=== PATIENT | female | born 1950 | race Caucasian/White ===

== ENCOUNTER 2017-01-16 15:53 | Emergency (ER) | payer OTHER ==
[2017-01-16 15:53] VITALS: BMI 30.9
[2017-01-16 17:03] LABS: BASO % 0.4 % (0.0-2.0); EOS # 0.2 K/uL (0.0-0.7); EOS % 3.6 % (0.0-4.0); HEMATOCRIT 36.2 % (34.0-47.0); LYMPH # 1.9 K/uL (1.0-4.3); LYMPH % 30.2 % (20.0-40.0); MEAN CELL VOLUME 87.2 fL (81.0-99.0); MEAN CORPUSCULAR HEMOGLOBIN 29.1 pg (27.0-31.0); MEAN CORPUSCULAR HGB CONC 33.4 g/dL (33.0-37.0); MEAN PLATELET VOLUME 10.8 fL (7.2-11.7); MONO # 0.4 K/uL (0.0-0.8); MONO % 6.8 % (0.0-10.0); RED CELL DISTRIBUTION WIDTH 14.2 % (11.5-14.5); WHITE BLOOD COUNT 6.3 K/uL (4.8-10.8)
--- NOTE | 2017-01-16 17:05 | C.PDOC ---
History Of Present Illness 67-year-old female, whose PMHx includes Hypertension (on 160mg Valsartan QD), presents to the emergency department with complaints of high blood pressure. Patient states that a nurse came to her home to do a physical for insurance, and patients BP was found to be 240/120. Patient was told to take an additional dose her blood pressure medication, which she did, without any change in pressure, resulting in her coming to the ED for evaluation. Patient currently asymptomatic. Denies dizziness, headaches, nausea/vomiting, chest pain, back pain, or any other associated symptoms. No other complaints at this time. Time Seen by Provider: 01/16/17 16:44 Chief Complaint (Nursing): High Blood Pressure History Per: Patient History/Exam Limitations: no limitations Past Medical History Reviewed: Historical Data, Nursing Documentation, Vital Signs Vital Signs: Last Vital Signs Temp 98.0 F 01/16/17 18:04 Pulse 71 01/16/17 18:04 Resp 17 01/16/17 18:04 BP 163/87 H 01/16/17 19:00 Pulse Ox 96 01/16/17 18:04 - Medical History PMH: Anxiety, Asthma, HTN, Hypercholesterolemia Family History: States: No Known Family Hx - Social History Hx Tobacco Use: No Hx Alcohol Use: No Hx Substance Use: No - Immunization History Hx Tetanus Toxoid Vaccination: No Hx Influenza Vaccination: No Hx Pneumococcal Vaccination: No Review Of Systems Except As Marked, All Systems Reviewed And Found Negative. Constitutional: Negative for: Fever, Chills Cardiovascular: Negative for: Chest Pain, Palpitations Respiratory: Negative for: Shortness of Breath Gastrointestinal: Negative for: Nausea, Vomiting, Abdominal Pain Musculoskeletal: Negative for: Back Pain Neurological: Negative for: Weakness, Numbness, Headache, Dizziness Physical Exam - Physical Exam Appears: Non-toxic, No Acute Distress Skin: Warm, Dry, No Rash Head: Atraumatic, Normacephalic Eye(s): bilateral: Normal Inspection, PERRL, EOMI Nose: Normal Oral Mucosa: Moist Lips: Normal Appearing Neck: Normal ROM Cardiovascular: Rhythm Regular, No Murmur Respiratory: Normal Breath Sounds, No Accessory Muscle Use Gastrointestinal/Abdominal: Soft, No Tenderness Extremity: Normal ROM Neurological/Psych: Oriented x3 ED Course And Treatment - Laboratory Results Result Diagrams: 01/16/17 16:53 01/16/17 17:00 Lab Interpretation: No Acute Changes O2 Sat by Pulse Oximetry: 99 Pulse Ox Interpretation: Normal Progress Note: Patient given 2 doses of clonidine 0.1mg po and BP decreased to 167/86. she remains asymptomatic. Reevaluation Time: 19:20 Reassessment Condition: Improved Disposition Counseled Patient/Family Regarding: Studies Performed, Diagnosis, Need For Followup, Rx Given - Disposition Referrals: Tim Robles MD, PhD [Family Provider] - Karla Silva MD [Staff Provider] - Disposition: HOME/ ROUTINE Disposition Time: 19:21 Condition: IMPROVED Additional Instructions: follow up with your ventilating engineer in the morning for additional monitoring of your blood pressure. Prescriptions: hydroCHLOROthiazide [Hydrodiuril] 25 mg PO DAILY #30 tab Instructions: Hypertension (ED) Print Language: MICRONESIAN - Clinical Impression Clinical Impression: Uncontrolled hypertension - Scribe Statement The provider has reviewed the documentation as recorded by the Jay Schafer All medical record entries made by the Manuelitoibariadna were at my direction and personally dictated by me. I have reviewed the chart and agree that the record accurately reflects my personal performance of the history, physical exam, medical decision making, and the department course for this patient. I have also personally directed, reviewed, and agree with the discharge instructions and disposition.
[2017-01-16 17:13] LABS: URINE BILIRUBIN NEGATIVE (NEGATIVE); URINE BLOOD NEGATIVE (NEGATIVE); URINE COLOR Colorless (YELLOW); URINE GLUCOSE (UA) NORMAL (Normal); URINE KETONE NEGATIVE (NEGATIVE); URINE LEUKOCYTE ESTERASE NEG Leu/uL (Negative); URINE PROTEIN NEGATIVE (NEGATIVE); URINE UROBILINOGEN NORMAL mg/dL (0.2-1.0); WBC URINE 1 /hpf (0-5)
[2017-01-16 17:19] LABS: CHLORIDE 104 mmol/L (98-107)
[2017-01-16 17:20] LABS: POTASSIUM 3.5 mmol/L (3.6-5.2); SODIUM 140 mmol/L (132-148)
[2017-01-16 17:22] LABS: ALB/GLOB RATIO 1.1 (1.0-2.1); AST/SGOT 19 U/L (14-36); BILIRUBIN,TOTAL 0.7 mg/dL (0.2-1.3); BLOOD UREA NITROGEN 13 mg/dL (7-17); CARBON DIOXIDE 25 mmol/L (22-30); GFR AFRICAN-AMERICAN > 60; TOTAL PROTEIN 6.8 g/dL (6.3-8.3)
[2017-01-16 17:23] LABS: ALKALINE PHOSPHATASE 83 U/L (38-126); ALT/SGPT 34 U/L (9-52); GLUCOSE,RANDOM 103 mg/dL (65-105)
[2017-01-16 18:08] VITALS: PULSE 71; RESP 17; TEMP 98
[2017-01-16 19:01] VITALS: BP 163/87
[2017-01-16 19:21] VITALS: O2SAT 99
== END 2017-01-16 19:31 | disposition home or self-care (01) ==
LOC: C.ER 15:53
DX: I10 Essential (primary) hypertension (principal)

== ENCOUNTER 2017-04-22 11:38 | Emergency (ER) | payer OTHER ==
[2017-04-22 11:38] VITALS: BMI 30.9
[2017-04-22 11:52] VITALS: BP 147/87; PULSE 85; RESP 18; TEMP 98.5; O2SAT 98
--- NOTE | 2017-04-22 13:19 | C.PDOC ---
History Of Present Illness 67 yr old female presents to the ER with complaints of left lower jaw pain for 1 week. Patient states she went to her dentist but was unable to be seen. Patient denies recent trauma or injury, fever, mouth swelling, throat swelling, neck pain or headache. Time Seen by Provider: 04/22/17 11:56 Chief Complaint (Nursing): Dental Pain History Per: Patient History/Exam Limitations: no limitations Onset/Duration Of Symptoms: Days (1 week) Past Medical History Reviewed: Historical Data, Nursing Documentation, Vital Signs Vital Signs: Last Vital Signs Temp 98.5 F 04/22/17 11:52 Pulse 85 04/22/17 11:52 Resp 18 04/22/17 11:52 BP 147/87 04/22/17 11:52 Pulse Ox 98 04/22/17 13:23 - Medical History PMH: Anxiety, Asthma, HTN, Hypercholesterolemia Family History: States: No Known Family Hx - Social History Hx Tobacco Use: No Hx Alcohol Use: No Hx Substance Use: No - Immunization History Hx Tetanus Toxoid Vaccination: No Hx Influenza Vaccination: No Hx Pneumococcal Vaccination: No Review Of Systems Except As Marked, All Systems Reviewed And Found Negative. Constitutional: Negative for: Fever ENT: Positive for: Other ((+) Left lower jaw pain.). Negative for: Mouth Swelling, Throat Swelling Musculoskeletal: Negative for: Neck Pain Neurological: Negative for: Headache Physical Exam - Physical Exam Appears: Non-toxic, No Acute Distress Skin: Warm, Dry, No Rash Head: Atraumatic, Normacephalic Oral Mucosa: Moist Tongue: Normal Appearing, No Swelling Lips: Normal Appearing, No Swelling Teeth: Caries (Left lower, multiple caries.) Throat: Normal, No Erythema, No Exudate, No Drooling Neck: Normal, Normal ROM, Supple Lymphatic: No Adenopathy Chest: Symmetrical, No Tenderness Cardiovascular: Rhythm Regular, No Murmur Respiratory: Normal Breath Sounds, No Rales, No Rhonchi, No Stridor, No Wheezing Extremity: Normal ROM, No Swelling Neurological/Psych: Oriented x3, Normal Speech, Normal Motor ED Course And Treatment O2 Sat by Pulse Oximetry: 98 (RA ) Pulse Ox Interpretation: Normal Medical Decision Making Medical Decision Making: PLAN: * Janel PERLA Disposition - Disposition Referrals: [facility] [Outside] [facility] [Outside] Disposition: HOME/ ROUTINE Disposition Time: 12:05 Condition: GOOD Additional Instructions: Thank you for letting us take care of you today. Your provider was Dr. Noyola. You were treated for dental pain. The emergency medical care you received today was directed at your acute symptoms. If you were prescribed any medication, please fill it and take as directed. It may take several days for your symptoms to resolve. Return to the Emergency Department if your symptoms worsen, do not improve, or if you have any other problems. Please contact your doctor or call one of the physicians/clinics you have been referred to that are listed on the Patient Visit Information form that is included in your discharge packet. Bring any paperwork you were given at discharge with you along with any medications you are taking to your follow up visit. Our treatment cannot replace ongoing medical care by a primary care provider (PCP) outside of the emergency department. Thank you for allowing the [facility] team to be part of your care today. Follow up with a dentist in the next 1-2 days for further care. Prescriptions: Ibuprofen [Motrin] 600 mg PO Q6 PRN #20 tab PRN Reason: Pain, Moderate (4-7) Instructions: Dental Caries (ED) Forms: [employer] (Cook Islander) - Clinical Impression Clinical Impression: Dental caries - Scribe Statement The provider has reviewed the documentation as recorded by the Jay Curtis Provider Attestation: All medical record entries made by the Manuelitoibariadna were at my direction and personally dictated by me. I have reviewed the chart and agree that the record accurately reflects my personal performance of the history, physical exam, medical decision making, and the department course for this patient. I have also personally directed, reviewed, and agree with the discharge instructions and disposition.
== END 2017-04-22 12:15 | disposition home or self-care (01) ==
LOC: C.ER 11:38
DX: K02.9 Dental caries, unspecified (principal)

== ENCOUNTER 2018-05-12 10:53 | Emergency (ER) | payer OTHER ==
[2018-05-12 10:53] VITALS: BMI 30.9
[2018-05-12 11:08] VITALS: BP 148/89; PULSE 96; RESP 18; TEMP 97.9; O2SAT 98
--- NOTE | 2018-05-12 11:26 | C.PDOC ---
History Of Present Illness 68 y/o female presents to the ED with complaint of right 2nd and 3rd toe pain for 1 week. States she injured the toes 1 week ago when she accidentally stubbed them against wood. Pain is described as minimal, rated 2/10, and throbbing. Otherwise no bruising, numbness, tingling, or other complaints. Patient notes the toes seem swollen. Time Seen by Provider: 05/12/18 11:16 Chief Complaint (Nursing): Lower Extremity Problem/Injury History Per: Patient History/Exam Limitations: no limitations Onset/Duration Of Symptoms: Days Current Symptoms Are (Timing): Still Present Past Medical History Reviewed: Historical Data, Nursing Documentation, Vital Signs Vital Signs: Last Vital Signs Temp 97.9 F 05/12/18 11:05 Pulse 96 H 05/12/18 11:05 Resp 18 05/12/18 11:05 BP 148/89 05/12/18 11:05 Pulse Ox 98 05/12/18 11:58 - Medical History PMH: Anxiety, Asthma, HTN, Hypercholesterolemia Family History: States: No Known Family Hx - Social History Hx Tobacco Use: No Hx Alcohol Use: No Hx Substance Use: No - Immunization History Hx Tetanus Toxoid Vaccination: No Hx Influenza Vaccination: No Hx Pneumococcal Vaccination: No Review Of Systems Except As Marked, All Systems Reviewed And Found Negative. Musculoskeletal: Positive for: Foot Pain (right toes) Skin: Negative for: Lesions, Bruising Neurological: Negative for: Weakness, Numbness, Incoordination Physical Exam - Physical Exam Appears: Well, Non-toxic, No Acute Distress Skin: Normal Color, Warm, Dry, No Ecchymosis Head: Atraumatic, Normacephalic Eye(s): bilateral: Normal Inspection Neck: Normal ROM Chest: Symmetrical Respiratory: No Accessory Muscle Use, Other (Speaking in full sentences) Extremity: Tenderness (mild tenderness to right 2nd and 3rd toes), Capillary Refill (less than 2 sec), Swelling (2nd and 3rd digits of right foot w/ mild swelling), Other (Limited ROM secondary to pain) Pulses: Left Dorsalis Pedis: Normal, Right Dorsalis Pedis: Normal Neurological/Psych: Oriented x3, Normal Speech ED Course And Treatment O2 Sat by Pulse Oximetry: 98 (RA) Pulse Ox Interpretation: Normal - Other Rad x-ray right foot X-Ray: Interpreted by Me, Viewed By Me Interpretation: (+) fracture to 3rd distal phalanx Medical Decision Making Medical Decision Making: Initial Plan: * X-Ray right foot Progress/Updates: X-ray shows fracture to 3rd distal phalanx. Results discussed with patient. Mirzamatilda lee-taped by pearl technician. Patient is stable for discharge, given follow up instructions. Disposition - Disposition Referrals: Becca Sylvester DPM [Staff Provider] - [facility] [Outside] Disposition: HOME/ ROUTINE Disposition Time: 12:01 Condition: STABLE Additional Instructions: Follow up with the Shareholder within 3-5 days. Return if worsened. Instructions: Toe Fracture (DC) Forms: [employer] (Thai) - Clinical Impression Clinical Impression: Toe fracture - PA / SOCIAL WORK MANAGER / Resident Statement MD/DO has reviewed & agrees with the documentation as recorded. - Scribe Statement The provider has reviewed the documentation as recorded by the Scribe (Tana Tompkins) All medical record entries made by the Scribe were at my direction and personally dictated by me. I have reviewed the chart and agree that the record accurately reflects my personal performance of the history, physical exam, medical decision making, and the department course for this patient. I have also personally directed, reviewed, and agree with the discharge instructions and disposition.
--- NOTE | 2018-05-12 14:29 | RAD ---
Date of service: 05/12/2018 PROCEDURE: Right Foot Radiographs. HISTORY: foot injury, pain to the 2nd and 3rd toes COMPARISON: None. FINDINGS: BONES: Bone alignment and mineralization are normal. There is no acute displaced fracture or bone destruction. There is a prominent plantar calcaneal spur. JOINTS: Normal. SOFT TISSUES: There is mild dorsal soft tissue swelling. . OTHER FINDINGS: None. IMPRESSION: No acute fracture or dislocation.
== END 2018-05-12 12:51 | disposition home or self-care (01) ==
LOC: C.ER 10:53
DX: S92.531A Displaced fracture of distal phalanx of right lesser toe(s), initial encounter for closed fracture (principal); W22.8XXA Striking against or struck by other objects, initial encounter